=== PATIENT | female | born 1995 | race Caucasian/White ===

== ENCOUNTER 2018-06-30 11:38 | Emergency (ER) | payer MEDICAID, OTHER | END 2018-06-30 12:33 | disposition home or self-care (01) | LOC: MADERS 11:38 | DX: O98.319 Other infections with a predominantly sexual mode of transmission complicating pregnancy, unspecified trimester (principal); O99.519 Diseases of the respiratory system complicating pregnancy, unspecified trimester; J45.909 Unspecified asthma, uncomplicated; O99.340 Other mental disorders complicating pregnancy, unspecified trimester; F31.9 Bipolar disorder, unspecified; F60.3 Borderline personality disorder; Z87.891 Personal history of nicotine dependence; Z79.899 Other long term (current) drug therapy | CPT/HCPCS: 99282 ==

== ENCOUNTER 2019-12-02 19:08 | Emergency (ER) | payer OTHER | END 2019-12-02 19:48 | disposition home or self-care (01) | LOC: MADERS 19:08 | DX: O99.512 Diseases of the respiratory system complicating pregnancy, second trimester (principal); J06.9 Acute upper respiratory infection, unspecified; J45.909 Unspecified asthma, uncomplicated; O99.342 Other mental disorders complicating pregnancy, second trimester; F31.9 Bipolar disorder, unspecified; F43.10 Post-traumatic stress disorder, unspecified; F60.9 Personality disorder, unspecified; O99.332 Smoking (tobacco) complicating pregnancy, second trimester; F17.210 Nicotine dependence, cigarettes, uncomplicated; Z3A.26 26 weeks gestation of pregnancy | CPT/HCPCS: 99282 ==

== ENCOUNTER 2020-05-10 18:04 | Emergency (ER) | payer OTHER ==
[2020-05-10 18:50] LABS: Pregnancy Test - Urine (BHCG) Negative (Negative); Pregu Control Background? CLEAR/WHITE (CLR/WHITE); Pregu Control Bar Appear? YES (CONTROL BAR); Specific Gravity 1.025 (1.002-1.036)
== END 2020-05-10 19:08 | disposition home or self-care (01) ==
LOC: MADERS 18:04
DX: R11.0 Nausea (principal); R63.0 Anorexia; J45.909 Unspecified asthma, uncomplicated; F31.9 Bipolar disorder, unspecified; F20.9 Schizophrenia, unspecified; F41.9 Anxiety disorder, unspecified; F17.210 Nicotine dependence, cigarettes, uncomplicated
CPT/HCPCS: 81025; 99284

== ENCOUNTER 2020-07-25 19:06 | Emergency (ER) | payer BC, OTHER | END 2020-07-25 20:04 | disposition home or self-care (01) | LOC: MADERS 19:06 | DX: M79.10 Myalgia, unspecified site (principal); R05 Cough; Z20.828 Contact with and (suspected) exposure to other viral communicable diseases; F41.9 Anxiety disorder, unspecified; F31.9 Bipolar disorder, unspecified; F20.9 Schizophrenia, unspecified; F43.10 Post-traumatic stress disorder, unspecified; F17.210 Nicotine dependence, cigarettes, uncomplicated | CPT/HCPCS: 99283 ==

== ENCOUNTER 2022-09-18 22:04 | Emergency (ER) | payer BC, OTHER ==
[2022-09-18] MEDS ORDERED: Dexamethasone 10 MG/ML VIAL ONE (22:32)
== END 2022-09-18 22:10 | disposition home or self-care (01) ==
LOC: MADERS 22:04
DX: J02.8 Acute pharyngitis due to other specified organisms (principal); F17.210 Nicotine dependence, cigarettes, uncomplicated
CPT/HCPCS: 87081; 87430; 96372; 99283; J1100

== ENCOUNTER 2022-12-19 13:05 | Emergency (ER) | payer BC, OTHER, SELFPAY | END 2022-12-19 14:37 | disposition home or self-care (01) | LOC: MADERS 13:05 | DX: Z53.21 Procedure and treatment not carried out due to patient leaving prior to being seen by health care provider (principal) ==

== ENCOUNTER 2023-01-30 06:25 | Emergency (ER) | payer BC, OTHER ==
[2023-01-30] MEDS ORDERED: Ondansetron PF 4 MG/2 ML Vial ONE (06:55)
[2023-01-30] MEDS ORDERED: Sodium Chloride 0.9% 1,000 ML ONE (06:55)
[2023-01-30 07:20] LABS: #Eosinphils 0.1 thou/uL (0.0-0.7); #Lymphocytes 1.7 thou/uL (1.20-3.40); #Monocytes 0.4 thou/uL (0.11-0.59); #Neutrophils 4.4 thou/uL (1.40-6.50); %Basophils 0.6 % (0.0-1.0); %Eosinophils 1.5 % (0.0-10.0); %Lymphocytes 25.6 % (21.0-51.0); %Monocytes 5.6 % (0.0-10.0); %Neutrophils 66.6 % (42.0-75.0); Mean Corpuscular HGB CONC 33.6 g/dL (32.0-36.0); Mean Corpuscular Hemoglobin 28.8 pg (27.0-31.0); Mean Corpuscular Volume 85.7 fl (78.0-98.0); Mean Platelet Volume 10.5 fL (7.4-10.4); Platelet Count 194 10x3/uL (130-400); RBC Distribution Width 11.4 % (11.5-14.5); Red Blood Cell (RBC) Count 4.87 mill/uL (4.20-5.40); White Blood Cell (WBC) Count 6.5 10x3/uL (4.8-10.8)
[2023-01-30 07:35] LABS: ALT (SGPT) 7 U/L (8-55); AST (SGOT) 13 U/L (5-34); Albumin 3.6 g/dL (3.5-5.0); Alkaline Phosphatase 58 U/L (40-110); Anion Gap 13 mmol/L (10-20); BUN (Urea Nitrogen) 9 mg/dL (7.0-18.7); Bilirubin, Total 0.4 mg/dL (0.2-1.2); Calc. Creatinine Clearance 0 mL/min (70-130); Calcium 9.1 mg/dL (7.8-10.44); Carbon Dioxide 22 mmol/L (22-29); Chloride 106 mmol/L (98-107); Estimated GFR 123; Globulin 3.1 g/dL (2.4-3.5); Glucose 89 mg/dL (70-105); Potassium 3.6 mmol/L (3.5-5.1); Protein, Total 6.7 g/dL (6.0-8.3); Sodium 137 mmol/L (136-145)
[2023-01-30] MEDS ORDERED: Metoclopramide HCl 10 MG/2 ML VIAL ONE (07:57)
[2023-01-30 08:29] LABS: Bilirubin Negative (Negative); Blood, Urine Negative (Negative); Clarity Clear (Clear); Glucose, Urine (Dipstick) Negative (Negative); Ketone, Urine 15 mg/dL (Negative); Leukocyte Trace (Negative); Nitrite Negative (Negative); Protein, Urine (Dipstick) 30 mg/dL (Neg-Trace); Specific Gravity, Urine 1.025 (1.005-1.030); Urobilinogen 0.2 mg/dL (Less than 2)
[2023-01-30 08:32] LABS: RBC/HPF 0-3 HPF (0-3); WBC/HPF 0-3 HPF (0-3)
[2023-01-30 08:33] LABS: Bacteria/HPF 1+ HPF (None Seen)
== END 2023-01-30 10:00 | disposition home or self-care (01) ==
LOC: MADERS 06:25
DX: O99.351 Diseases of the nervous system complicating pregnancy, first trimester (principal); G43.909 Migraine, unspecified, not intractable, without status migrainosus; O99.281 Endocrine, nutritional and metabolic diseases complicating pregnancy, first trimester; E86.0 Dehydration; O99.331 Smoking (tobacco) complicating pregnancy, first trimester; F17.210 Nicotine dependence, cigarettes, uncomplicated; Z3A.11 11 weeks gestation of pregnancy
CPT/HCPCS: 80053; 81003; 81015; 85025; 96361; 96374; 96375; J2405; J2765; J7050

== ENCOUNTER 2023-06-03 08:53 | Emergency (ER) | payer OTHER | END 2023-06-03 09:28 | disposition home or self-care (01) | LOC: MADERS 08:53 | DX: H92.02 Otalgia, left ear (principal); Z87.891 Personal history of nicotine dependence | CPT/HCPCS: 99282 ==

== ENCOUNTER 2023-09-29 12:01 | Emergency (ER) | payer OTHER ==
[2023-09-29] MEDS ORDERED: Sodium Chloride 0.9% 1,000 ML ONE (13:10)
[2023-09-29] MEDS ORDERED: Ondansetron PF 4 MG/2 ML Vial ONE (13:10)
[2023-09-29] MEDS ORDERED: Famotidine/PF 20 mg/2ml Vial ONE (13:10)
[2023-09-29 13:54] LABS: #Eosinphils 0.1 thou/uL (0.0-0.7); #Lymphocytes 1.2 thou/uL (1.20-3.40); #Monocytes 0.3 thou/uL (0.11-0.59); %Basophils 0.6 % (0.0-1.0); %Eosinophils 0.9 % (0.0-10.0); %Lymphocytes 18.5 % (21.0-51.0); %Monocytes 4.6 % (0.0-10.0); %Neutrophils 75.4 % (42.0-75.0); Hematocrit 48.3 % (36.0-47.0); Hemoglobin 14.6 g/dL (12.0-16.0); Mean Corpuscular HGB CONC 30.2 g/dL (32.0-36.0); Mean Corpuscular Hemoglobin 27.7 pg (27.0-31.0); Mean Corpuscular Volume 91.5 fl (78.0-98.0); Mean Platelet Volume 11.7 fL (7.4-10.4); Platelet Count 253 10x3/uL (130-400); RBC Distribution Width 14.2 % (11.5-14.5); Red Blood Cell (RBC) Count 5.28 mill/uL (4.20-5.40); White Blood Cell (WBC) Count 6.6 10x3/uL (4.8-10.8)
[2023-09-29 14:11] LABS: ALT (SGPT) 10 U/L (8-55); AST (SGOT) 18 U/L (5-34); Albumin 4.3 g/dL (3.5-5.0); Alkaline Phosphatase 106 U/L (40-110); Anion Gap 15 mmol/L (10-20); BUN (Urea Nitrogen) 24 mg/dL (7.0-18.7); Bilirubin, Total 0.3 mg/dL (0.2-1.2); Calc. Creatinine Clearance 0 mL/min (70-130); Calcium 9.3 mg/dL (7.8-10.44); Carbon Dioxide 21 mmol/L (22-29); Chloride 110 mmol/L (98-107); Estimated GFR 97; Globulin 3.4 g/dL (2.4-3.5); Glucose 94 mg/dL (70-105); Lipase 22 U/L (8-78); Potassium 4.6 mmol/L (3.5-5.1); Protein, Total 7.7 g/dL (6.0-8.3); Sodium 141 mmol/L (136-145)
[2023-09-29 14:34] LABS: Bilirubin Negative (Negative); Blood, Urine Negative (Negative); Glucose, Urine (Dipstick) Negative (Negative); Ketone, Urine Negative (Negative); Leukocyte Negative (Negative); Nitrite Negative (Negative); Protein, Urine (Dipstick) Negative (Neg-Trace); Urobilinogen 0.2 mg/dL (Less than 2)
[2023-09-29 14:37] LABS: Clarity Hazy (Clear); Pregnancy Test - Urine (BHCG) Negative (Negative); Pregu Control Background? CLEAR/WHITE (CLR/WHITE); Pregu Control Bar Appear? YES (CONTROL BAR); Specific Gravity 1.026 (1.002-1.036)
[2023-09-29 14:38] LABS: Specific Gravity, Urine 1.026 (1.002-1.036)
[2023-09-29 14:44] LABS: Bacteria/HPF Rare-Few HPF (None Seen); CAUTI Indications for Culture Dysuria,urgency,freq; RBC/HPF 0-3 HPF (0-3); Urine Culture Reflex No No
[2023-09-29] MEDS ORDERED: Mag-Al Plus 1200 MG/1200 MG/120 MG/30 ML UDCUP ONE (15:03)
[2023-09-29] MEDS ORDERED: Lidocaine Viscous Sol 2% 15 ml UD Cup ONE (15:03)
== END 2023-09-29 15:15 | disposition home or self-care (01) ==
LOC: MADERS 12:01
DX: R10.13 Epigastric pain (principal); F17.210 Nicotine dependence, cigarettes, uncomplicated
CPT/HCPCS: 80053; 81001; 81025; 83690; 85025; 96361; 96374; 96375; J2405; J7050; S0028

== ENCOUNTER 2023-10-27 08:29 | Emergency (ER) | payer OTHER, SELFPAY | END 2023-10-27 09:08 | disposition home or self-care (01) | LOC: MADERS 08:29 | DX: Z02.79 Encounter for issue of other medical certificate (principal); F17.210 Nicotine dependence, cigarettes, uncomplicated | CPT/HCPCS: 99281 ==

== ENCOUNTER 2023-11-13 23:06 | Emergency (ER) | payer OTHER ==
[2023-11-13] MEDS ORDERED: Ondansetron ODT 4 MG TAB ONE (23:26)
[2023-11-13] MEDS ORDERED: Mag-Al Plus 1200 MG/1200 MG/120 MG/30 ML UDCUP ONE (23:27)
[2023-11-13] MEDS ORDERED: Lidocaine 2% Viscous 100 ML BOTTLE ONE (23:28)
== END 2023-11-14 00:53 | disposition home or self-care (01) ==
LOC: MADERS 23:06
DX: K29.70 Gastritis, unspecified, without bleeding (principal); F17.210 Nicotine dependence, cigarettes, uncomplicated
CPT/HCPCS: 99283; Q0162

== ENCOUNTER 2023-11-29 08:38 | Emergency (ER) | payer OTHER ==
[2023-11-29] MEDS ORDERED: Amoxicillin/Potassium Clav 875 MG TAB ONE (09:53)
== END 2023-11-29 09:55 | disposition home or self-care (01) ==
LOC: MADERS 08:38
DX: J02.9 Acute pharyngitis, unspecified (principal); H65.91 Unspecified nonsuppurative otitis media, right ear; F17.210 Nicotine dependence, cigarettes, uncomplicated; K21.9 Gastro-esophageal reflux disease without esophagitis; Z79.899 Other long term (current) drug therapy
CPT/HCPCS: 87081; 87430; 87804; 99283

== ENCOUNTER 2024-06-21 07:40 | Emergency (ER) | payer OTHER | END 2024-06-21 08:16 | disposition home or self-care (01) | LOC: MADERS 07:40 | DX: M62.838 Other muscle spasm (principal); R22.1 Localized swelling, mass and lump, neck; F17.210 Nicotine dependence, cigarettes, uncomplicated | CPT/HCPCS: 99283 ==

== ENCOUNTER 2024-08-03 15:22 | Emergency (ER) | payer OTHER ==
[2024-08-03] MEDS ORDERED: Lidocaine 4% Patch ONE (17:10)
[2024-08-03] MEDS ORDERED: Ketorolac Tromethamine 60 MG/2 ML VIAL ONE (17:10)
== END 2024-08-03 17:36 | disposition home or self-care (01) ==
LOC: MADERS 15:22
DX: M54.6 Pain in thoracic spine (principal); J45.909 Unspecified asthma, uncomplicated; F17.210 Nicotine dependence, cigarettes, uncomplicated
CPT/HCPCS: 96372; 99283; J1885

== ENCOUNTER 2024-09-16 08:52 | Emergency (ER) | payer OTHER ==
[2024-09-16] MEDS ORDERED: Ibuprofen 200 MG TAB ONE (09:21)
== END 2024-09-16 09:42 | disposition home or self-care (01) ==
LOC: MADERS 08:52
DX: J02.0 Streptococcal pharyngitis (principal); F17.210 Nicotine dependence, cigarettes, uncomplicated
CPT/HCPCS: 87430; 99283

== ENCOUNTER 2024-11-13 16:20 | Emergency (ER) | payer OTHER | END 2024-11-13 17:44 | disposition home or self-care (01) | LOC: MADERS 16:20 | DX: J02.9 Acute pharyngitis, unspecified (principal); F17.210 Nicotine dependence, cigarettes, uncomplicated | CPT/HCPCS: 87081; 87428; 87430; 99283 ==

== ENCOUNTER 2024-12-28 12:18 | Emergency (ER) | payer MEDICAID, OTHER ==
[2024-12-28] MEDS ORDERED: Ibuprofen 600 MG TAB ONE (12:51)
[2024-12-28] MEDS ORDERED: Acetaminophen 500 MG TAB ONE (12:51)
== END 2024-12-28 13:17 | disposition home or self-care (01) ==
LOC: MADERS 12:18
DX: J11.1 Influenza due to unidentified influenza virus with other respiratory manifestations (principal); F17.210 Nicotine dependence, cigarettes, uncomplicated
CPT/HCPCS: 87428; 99283

== ENCOUNTER 2024-12-29 18:50 | Emergency (ER) | payer OTHER ==
[2024-12-29] MEDS ORDERED: Ipratropium/Albuterol 3 ML NEB ONE (19:07)
[2024-12-29] MEDS ORDERED: Acetaminophen 500 MG TAB ONE (20:35)
== END 2024-12-29 20:42 | disposition home or self-care (01) ==
LOC: MADERS 18:50
DX: J11.1 Influenza due to unidentified influenza virus with other respiratory manifestations (principal); F17.210 Nicotine dependence, cigarettes, uncomplicated
CPT/HCPCS: 71046; 93005; J7620

== ENCOUNTER 2025-07-10 14:06 | Emergency (ER) | payer MEDICAID ==
[2025-07-10] MEDS ORDERED: Acetaminophen 500 MG TAB ONE (14:44)
[2025-07-10 14:47] LABS: Glucose, Urine (Dipstick) Negative (Negative); Leukocyte Trace (Negative); Protein, Urine (Dipstick) Negative (Neg-Trace); Specific Gravity, Urine 1.020 (1.005-1.030)
[2025-07-10 14:50] LABS: Bacteria/HPF 1+ HPF (None Seen); CAUTI Indications for Culture Pelvic or flank pain; RBC/HPF 0-3 HPF (0-3)
[2025-07-10 14:51] LABS: Pregnancy Test - Urine (BHCG) Negative (Negative); Pregu Control Background? CLEAR/WHITE (CLR/WHITE); Pregu Control Bar Appear? YES (CONTROL BAR); Urine Culture Reflex No No
== END 2025-07-10 15:07 | disposition home or self-care (01) ==
LOC: MADERS 14:06
DX: R11.2 Nausea with vomiting, unspecified (principal); E66.9 Obesity, unspecified; J45.909 Unspecified asthma, uncomplicated; F17.210 Nicotine dependence, cigarettes, uncomplicated; K29.70 Gastritis, unspecified, without bleeding
CPT/HCPCS: 81001; 81025; 99284; Q0162